=== PATIENT | female | born 1935 | race Caucasian/White ===

== ENCOUNTER 2020-08-03 12:01 | Emergency (ER) | payer MEDICARE, BC ==
[~2020-08-03] VITALS: Ht 157.5 cm; Wt 54.4 kg
[2020-08-03] MEDS ORDERED: WARFARIN SODIU2.5 MG (12:23)
[2020-08-03] MEDS ORDERED: SYNTHROID88 MCG (12:27)
[2020-08-03] MEDS ORDERED: DONEPEZIL HCL5 M1 (12:28)
== END 2020-08-03 15:16 | disposition home or self-care (01) ==
LOC: ED 12:01
DX: R82.90 Unspecified abnormal findings in urine (principal); R10.2 Pelvic and perineal pain; Z79.899 Other long term (current) drug therapy; Z87.891 Personal history of nicotine dependence
CPT/HCPCS: 80048; 81001; 85025; 87088; 99284